=== PATIENT | female | born 1990 | race Caucasian/White ===

== ENCOUNTER 2020-10-11 12:52 | Emergency (ER) | payer SELFPAY ==
[~2020-10-11] VITALS: Ht 170.2 cm; Wt 80.1 kg
[2020-10-11 13:11] VITALS: BP 135/58
--- NOTE | 2020-10-11 14:28 | NUR ---
Patient & Caregiver given discharge instructions and Rx, they have confirmed that they understand the instructions. Patient ambulatory with crutch use. NAD, all questions answered appropriately, denies additional needs at this time. No personal belongings left in room after discharge.
== END 2020-10-11 14:30 | disposition home or self-care (01) ==
LOC: ED 13:30
DX: S93.491A Sprain of other ligament of right ankle, initial encounter (principal); X50.1XXA Overexertion from prolonged static or awkward postures, initial encounter; Y93.89 Activity, other specified; Y92.009 Unspecified place in unspecified non-institutional (private) residence as the place of occurrence of the external cause; Y99.8 Other external cause status
CPT/HCPCS: 99283